=== PATIENT | female | born 1985 | race Caucasian/White ===

== ENCOUNTER 2020-03-05 09:41 | Day surgery (SDC) | payer OTHER ==
[2020-03-05 09:46] VITALS: BMI 22.4
--- NOTE | 2020-03-05 10:22 | PDOC ---
History of Present Illness - General Chief Complaint: Vaginal Bleeding Stated Complaint: SENT BY PCP (D[facility]) Time Seen by Provider: 03/05/20 10:22 Past History - Medical History Allergies/Adverse Reactions: Allergies Allergy/AdvReac Type Severity Reaction Status Date / Time No Known Allergies Allergy Verified 03/05/20 09:46 Asthma: Yes COPD: No - Reproductive History Is Patient Now?: No - Psycho-Social/Smoking History Smoking History: Never smoked - Substance Abuse Hx (Audit-C & DAST Scrn) How often the patient has a drink containing alcohol: Never Score: In Men: 4 or > Positive; In Women: 3 or > Positive: 0 Screen Result (Pos requires Nsg. Audit-10AR): Negative *Physical Exam - Vital Signs Last Vital Signs Temp Pulse Resp BP Pulse Ox 97 F L 82 18 112/66 99 03/05/20 09:43 03/05/20 09:43 03/05/20 09:43 03/05/20 09:43 03/05/20 09:43 Discharge - Follow up/Referral Referrals: ON STAFF,NOT [Primary Care Provider] - - Patient Discharge Instructions - Post Discharge Activity
[2020-03-05 11:15] LABS: BASO % 0.4 % (0-2.0); EOS % 3.6 % (0-4.5); HEMATOCRIT 31.3 % (32.4-45.2); HEMOGLOBIN 10.7 GM/dL (10.7-15.3); LYMPH % 21.7 % (8-40); MCH 31.3 pg (25.7-33.7); MCHC 34.2 g/dl (32.0-36.0); MEAN CELL VOLUME 91.6 fl (80-96); MEAN PLT VOLUME 7.4 fl (7.5-11.1); MONO % 8.1 % (3.8-10.2); NEUT % 66.2 % (42.8-82.8); PLATELET COUNT 220 K/MM3 (134-434); RBC 3.42 M/mm3 (3.60-5.2); RDW 12.6 % (11.6-15.6); WHITE BLOOD COUNT 4.2 K/mm3 (4.0-10.0)
[2020-03-05 11:21] LABS: INR 1.16 (0.83-1.09); PROTHROMBIN TIME (PATIENT) 13.7 SEC (9.7-13.0)
[2020-03-05] MEDS ORDERED: PROPOFOL 20 ML ONE ×3 (11:35→11:54)
[2020-03-05] MEDS ORDERED: MIDAZOLAM HCL 2 MG/2 ML SINGLE DOSE VIAL ONE (11:40)
[2020-03-05 11:43] LABS: ALBUMIN 3.7 g/dl (3.4-5.0); BLOOD UREA NITROGEN 8.1 mg/dL (7-18); CALCIUM 8.6 mg/dL (8.5-10.1); CREATININE 0.6 mg/dL (0.55-1.3); POTASSIUM 4.2 mmol/L (3.5-5.1); TOT PROT 6.2 g/dl (6.4-8.2)
[2020-03-05 11:49] LABS: BILIRUBIN,TOTAL 0.4 mg/dL (0.2-1)
[2020-03-05] MEDS ORDERED: ceFAZolin SODIUM 1 GM VIAL ONE (11:52)
[2020-03-05] MEDS ORDERED: ceFAZolin SODIUM 1 GM VIAL IVPB ONE (11:53)
[2020-03-05] MEDS ORDERED: KETOROLAC TROMETHAMINE 30 MG/1 ML VIAL ONE (11:57)
[2020-03-05] MEDS ORDERED: OXYTOCIN 10 UNITS/ML VIAL ONE (11:59)
[2020-03-05] MEDS ORDERED: IBUPROFEN 400 MG TABLET (FP) PO PRN (12:13)
[2020-03-05] MEDS ORDERED: ACETAMINOPHEN 325 MG TABLET (FP) PO PRN (12:13)
[2020-03-05] MEDS ORDERED: ONDANSETRON 4 MG/2 ML VIAL IVPUSH PRN (12:13)
--- NOTE | 2020-03-05 12:13 | OP ---
Operative Note - Note: Operative Date: 03/05/20 Pre-Operative Diagnosis: missed ab Operation: suction D&C Post-Operative Diagnosis: Same as Pre-op Surgeon: Charles Colon Durable Medical Equipment Technician: Agustin Nair Anesthesia: General Specimens Removed: POC Estimated Blood Loss (mls): 5 Operative Report Dictated: Yes
[2020-03-05] MEDS ORDERED: RHO(D) IMMUNE GLOBULIN 1,500 UNIT DISP.SYRIN IM ONE (12:15)
[2020-03-05] MEDS ORDERED: LACTATED RINGERS SOLUTION 1,000 ML IV SCH (12:30)
--- NOTE | 2020-03-05 12:42 | OP ---
DATE OF OPERATION: DATE OF DICTATION: 03/05/2020 PREOPERATIVE DIAGNOSIS: Missed . POSTOPERATIVE DIAGNOSIS: Missed . OPERATION: Suction, dilation and curettage. ANESTHESIA: TIVA. ANESTHESIOLOGIST: Agustin Nair, REF-DO SURGEON: Favian Colon MD PROCEDURE & FINDINGS: Under light general anesthesia patient was examined. Uterus felt to be about 10 weeks size. Part of placenta was sitting in the already dilated cervical os. Routine prep and drape was carried out. Cervix was grasped with tenaculum and traction was applied. Products of conception were removed using ring forceps. Suction curette number 10 was then used and suction curettage was performed without any problems. It alternated then with sharp curettage. Cavity felt to be completely empty. Patient was examined and uterus was well contracted and small. All instruments were withdrawn. Patient was given oxytocin intravenously and antibiotics preop. She tolerated the procedure very well. The estimated blood loss was 5 mL. Patient was awakened and transferred to the PACU stable and comfortable. FAVIAN COLON MD [id number]
[2020-03-05 13:56] VITALS: BP 103/65; PULSE 69; TEMP 98.1
--- NOTE | 2020-03-07 17:37 | PATH ---
Surgical Pathology Report Patient Name: AVERY HOLLAND [facility]. Rec. #: [id number] /Age/Gender: 1985 (Age: 34) / F Account: [id number] Location: AMBULATORY SURG Taken: 03/05/2020 Received: 03/06/2020 Reported: 03/07/2020 Physicians: Charles Colon MD Specimen(s) Received PRODUCTS OF CONCEPTION Clinical History Missed Final Diagnosis PRODUCTS OF CONCEPTION, SUCTION DILATION AND CURETTAGE: FRAGMENTS OF DECIDUA, GESTATIONAL ENDOMETRIUM, SCANT SUPERFICIAL MYOMETRIUM, AND RARE BENIGN CERVICAL SQUAMOUS EPITHELIUM. NO CHORIONIC VILLI IDENTIFIED. DEEPER LEVELS HAVE BEEN EXAMINED. Comment: Suggest clinical correlation. Electronically Signed Luci Villavicencio M.D. Gross Description Received in formalin labeled "products of conception," is a 4.0 x 3.5 x 0.2 cm aggregate of bryant-brown soft tissue fragments. No definitive villous tissue or somatic tissue is identified. The formalin is filtered and the specimen is entirely submitted in 2 cassettes. /03/06/2020 [facility]/03/06/2020
--- NOTE | 2020-03-09 21:08 | PDOC ---
Documentation entered by Milagros Olson SCRIBE, acting as scribe for Rolanda Garnett MD. Rolanda Garnett MD: This documentation has been prepared by the zacharyibe, Milagros Olson SCRIBE, under my direction and personally reviewed by me in its entirety. I confirm that the documentation accurately reflects all work, treatment, procedures, and medical decision making performed by me. Attending Attestation - Resident Resident Name: SandratevinmargaritaJarrell - ED Attending Attestation I have performed the following: I have examined & evaluated the patient, The case was reviewed & discussed with the resident, I agree w/resident's findings & plan, Exceptions are as noted - HPI HPI: 03/05/20 10:49 Patient is a 34 year old female with a significant past medical history of asthma who presents to the ED for admission for D&C. Pt was diagnosed with miscarriage last Friday, but has experienced persistent vaginal bleeding and cramping. Reports changing pad once today, denies clots. States bleeding is light. Rates cramping at 4/10 in suprapubic area. Was told to present to the ED for D&C by Dr. Colon. Denies F/C, CP, SOB, dizziness, headache, focal weakness/numbness, abd pain, LE edema. Allergies: sulfa abx - Physicial Exam PE: GENERAL: Awake, alert, and fully oriented, in no acute distress EYES: PERRLA, EOMI, sclera anicteric, conjunctiva clear ENT: Oropharynx clear without exudates. Moist mucosa NECK: Normal ROM, supple, no lymphadenopathy, JVD, or masses LUNGS: Breath sounds equal, clear to auscultation bilaterally. No wheezes, and no crackles HEART: Regular rate and rhythm, normal S1 and S2, no murmurs, rubs or gallops ABDOMEN: Soft, nontender, normoactive bowel sounds. No guarding, no rebound. No masses PELVIC: deferred as pt going up to OR for D&C with Dr. Colon EXTREMITIES: Normal range of motion, no edema. No clubbing or cyanosis. No cords, erythema, or tenderness NEUROLOGICAL: Normal speech, cranial nerves intact,equal strength and sensation b/l SKIN: Warm, Dry, normal turgor, no rashes or lesions noted. - Medical Decision Making 03/09/20 21:06 34yo F, dx 1st trimester spontaneous ab last Friday, presents to the ED for admission to OR for D&C Pt is hemodynamically stable IV placed, pre-op labs ordered Pelvic deferred as Dr. Colon at bedside to take pt to OR Per Dr. Colon, admit to [facility]. Order placed Discharge - Discharge Information Problems reviewed: Yes Clinical Impression/Diagnosis: Miscarriage Condition: Good Disposition: HOME - Follow up/Referral - Patient Discharge Instructions - Post Discharge Activity
== END 2020-03-05 16:10 | disposition home or self-care (01) ==
LOC: JER 09:41 → JASUSAT 11:14 → JASU-SURG 11:14 → J3W 13:20 → JASUSAT 16:10
PROVIDERS: ATTEND Specialist
PROC: 10D17ZZ Extraction of Products of Conception, Retained, Via Natural or Artificial Opening (ICD-10-PCS; principal; 2020-03-05 10:42)
DX: O02.1 Missed abortion (principal); Z3A.10 10 weeks gestation of pregnancy
CPT/HCPCS: 36415; 80053; 85025; 85610; 85730; 86850; 86900; 86901; 88305-TC; 94760

== ENCOUNTER 2020-09-29 08:17 | Emergency (ER) | payer OTHER ==
[2020-09-29 08:23] VITALS: BMI 22.3
[2020-09-29] MEDS ORDERED: SODIUM CHLORIDE 1,000 ML IV STA (09:03)
[2020-09-29 09:28] LABS: EPI CELLS 3 /uL (0-25.1); HYALINE CASTS 0 /uL (0-3.1); URINE APPEARANCE CLEAR; URINE BACTERIA 184 /uL (0-1359); URINE BILIRUBIN NEGATIVE (NEGATIVE); URINE COLOR YELLOW; URINE GLUCOSE (UA) NEGATIVE (NEGATIVE); URINE KETONE NEGATIVE (NEGATIVE); URINE LEUK ESTERASE NEGATIVE (NEGATIVE); URINE NITRITE NEGATIVE (NEGATIVE); URINE PROTEIN NEGATIVE (NEGATIVE); URINE RBC 7 /uL (0-23.9); URINE UROBILINOGEN 0.2 mg/dL (0.2-1.0); URINE WBC 2 /uL (0-25.8)
[2020-09-29 09:30] LABS: BASO % 0.1 % (0-2.0); EOS % 0.7 % (0-4.5); HEMATOCRIT 30.3 % (32.4-45.2); HEMOGLOBIN 10.6 GM/dL (10.7-15.3); LYMPH % 11.6 % (8-40); MCHC 35.1 g/dl (32.0-36.0); MEAN CELL VOLUME 91.1 fl (80-96); MEAN PLT VOLUME 7.3 fl (7.5-11.1); MONO % 5.1 % (3.8-10.2); NEUT % 82.5 % (42.8-82.8); PLATELET COUNT 265 K/MM3 (134-434); RBC 3.33 M/mm3 (3.60-5.2); WHITE BLOOD COUNT 6.9 K/mm3 (4.0-10.0)
[2020-09-29 09:55] LABS: POTASSIUM 3.5 mmol/L (3.5-5.1)
[2020-09-29 09:57] LABS: ALBUMIN 3.3 g/dl (3.4-5.0); BLOOD UREA NITROGEN 8.4 mg/dL (7-18); CALCIUM 8.8 mg/dL (8.5-10.1)
[2020-09-29 10:01] LABS: CREATININE 0.6 mg/dL (0.55-1.3)
[2020-09-29 10:02] LABS: TOT PROT 6.4 g/dl (6.4-8.2)
[2020-09-29 10:04] LABS: BILIRUBIN,TOTAL 0.2 mg/dL (0.2-1)
[2020-09-29 10:51] VITALS: BP 105/65; PULSE 90; TEMP 97.9
== END 2020-09-29 10:51 | disposition home or self-care (01) ==
LOC: JER 08:17
PROC: 3E0337Z Introduction of Electrolytic and Water Balance Substance into Peripheral Vein, Percutaneous Approach (ICD-10-PCS; principal; 2020-09-29)
DX: O20.0 Threatened abortion (principal)
CPT/HCPCS: 36415; 76801-TC; 80053; 81003; 84702; 85025; 87086; 99284-25

== ENCOUNTER 2021-04-06 23:00 | Inpatient (IN) | payer OTHER ==
[2021-04-07 01:05] LABS: BASO % 0.2 % (0-2.0); EOS % 0.3 % (0-4.5); HEMATOCRIT 30.1 % (32.4-45.2); HEMOGLOBIN 10.2 GM/dL (10.7-15.3); LYMPH % 7.4 % (8-40); MCH 31.4 pg (25.7-33.7); MCHC 33.8 g/dl (32.0-36.0); MEAN CELL VOLUME 92.9 fl (80-96); MEAN PLT VOLUME 8.4 fl (7.5-11.1); MONO % 4.8 % (3.8-10.2); NEUT % 87.3 % (42.8-82.8); PLATELET COUNT 213 10^3/uL (134-434); RBC 3.24 M/mm3 (3.60-5.2); RDW 13.9 % (11.6-15.6); WHITE BLOOD COUNT 11.4 K/mm3 (4.0-10.0)
[2021-04-07 01:14] LABS: INR 0.82 (0.83-1.09); PROTHROMBIN TIME (PATIENT) 10.1 SEC (9.7-13.0)
[2021-04-07 01:17] LABS: ACTIVATED PTT 25.1 SECONDS (25.2-36.5)
[2021-04-07] MEDS: ELECTROLYTE-148 SOLN 1,000 ML IV SCH ×2 (01:30→08:05)
[2021-04-07 01:35] VITALS: BMI 27.9
[2021-04-07 01:36] LABS: BLOOD UREA NITROGEN 11.6 mg/dL (7-18)
[2021-04-07 01:39] LABS: CREATININE 0.6 mg/dL (0.55-1.3)
[2021-04-07] MEDS ORDERED: AMPICILLIN SODIUM 2 GM VIAL IVPB ONE (02:30)
[2021-04-07] MEDS ORDERED: AMPICILLIN SODIUM 2 GM VIAL ONE (02:39)
[2021-04-07] MEDS ORDERED: PROMETHAZINE HCL 25 MG/1 ML VIAL IVPB ONE (03:10)
[2021-04-07] MEDS ORDERED: BUTORPHANOL TARTRATE 2 MG/ML VIAL IVPB ONE (03:10)
[2021-04-07] MEDS ORDERED: PROMETHAZINE HCL 25 MG/1 ML VIAL ONE (03:28)
[2021-04-07] MEDS ORDERED: BUTORPHANOL TARTRATE 2 MG/ML VIAL ONE (03:28)
[2021-04-07] MEDS ORDERED: AMPICILLIN SODIUM 1 GM VIAL ONE ×2 (06:43→11:10)
[2021-04-07] MEDS: AMPICILLIN SODIUM 1 GM VIAL IVPB SCH ×4 (06:45→21:26)
[2021-04-07] MEDS ORDERED: PCA PUMP NR ONE (09:06)
[2021-04-07] MEDS ORDERED: FENTANYL/BUPIVACAINE/NS/PF - PCEA - 50 ML DISP.SYRIN EP ONE (09:07)
[2021-04-07] MEDS ORDERED: OXYTOCIN 30 UNITS in 0.9% NS 30 UNIT/500 ML INFUS.BAG IVPB ONE (09:07)
[2021-04-07] MEDS ORDERED: OXYTOCIN 30 UNITS in 0.9% NS 30 UNIT/500 ML INFUS.BAG IVPB SCH (09:15)
[2021-04-07] MEDS: FENTANYL/BUPIVACAINE/NS/PF - PCEA - 50 ML DISP.SYRIN EP SCH (09:35)
[2021-04-07] MEDS ORDERED: NALOXONE HCL 0.4 MG/ML VIAL IVPUSH PRN (10:07)
[2021-04-07] MEDS ORDERED: morphine SULFATE/Preservative Free 0.5 MG/ML (1cc Syringe) ONE ×2 (11:58)
[2021-04-07] MEDS ORDERED: MORPHINE SULFATE 2 MG/ML VIAL ONE (12:01)
[2021-04-07] MEDS ORDERED: ONDANSETRON 4 MG/2 ML VIAL IVPB PRN (12:36)
[2021-04-07] MEDS ORDERED: SENNOSIDES/DOCUSATE COMBO (SENNA PLUS) TABLET (UD) PO PRN (12:36)
[2021-04-07] MEDS ORDERED: ACETAMINOPHEN 1000 MG/100 ML VIAL (NON FORMULARY) IVPB PRN (12:36)
[2021-04-07] MEDS ORDERED: IBUPROFEN 800 MG/8 ML IJ IVPB PRN (12:36)
[2021-04-07] MEDS ORDERED: oxyCODONE HCL 5 MG TABLET PO PRN (12:36)
[2021-04-07] MEDS ORDERED: OXYTOCIN 20 UNITS in 0.9% NS 20 UNIT/1,000 ML INFUS.BAG IV SCH (12:45)
[2021-04-07] MEDS ORDERED: IBUPROFEN 800 MG/8 ML IJ IVPB ONE (14:21)
[2021-04-07] MEDS: CEFAZOLIN 2 GM in DEXTROSE 5%-WATER - 50 ML IVPB SCH (17:58)
[2021-04-08] MEDS: CEFAZOLIN 2 GM in DEXTROSE 5%-WATER - 50 ML IVPB SCH (02:18)
[2021-04-08] MEDS: IBUPROFEN 600 MG TABLET (FP) PO PRN ×3 (06:47→19:18)
[2021-04-08] MEDS: SIMETHICONE 80 MG TAB.CHEW (FP) PO PRN ×3 (06:47→19:18)
[2021-04-08 07:43] LABS: BASO % 0.5 % (0-2.0); EOS % 0.5 % (0-4.5); HEMATOCRIT 30.8 % (32.4-45.2); HEMOGLOBIN 10.5 GM/dL (10.7-15.3); LYMPH % 4.7 % (8-40); MCH 31.9 pg (25.7-33.7); MCHC 33.9 g/dl (32.0-36.0); MEAN PLT VOLUME 8.4 fl (7.5-11.1); MONO % 3.5 % (3.8-10.2); NEUT % 90.8 % (42.8-82.8); PLATELET COUNT 225 10^3/uL (134-434); RBC 3.28 M/mm3 (3.60-5.2); RDW 14.3 % (11.6-15.6); WHITE BLOOD COUNT 15.4 K/mm3 (4.0-10.0)
[2021-04-08] MEDS ORDERED: BISACODYL 10 MG SUPP.RECT RC PRN (12:36)
[2021-04-09] MEDS: SIMETHICONE 80 MG TAB.CHEW (FP) PO PRN ×2 (06:16→12:19)
[2021-04-09] MEDS: IBUPROFEN 600 MG TABLET (FP) PO PRN ×2 (06:16→16:25)
[2021-04-09] MEDS: ACETAMINOPHEN 325 MG TABLET (FP) PO PRN ×2 (12:18→21:02)
[2021-04-09] MEDS: FENTANYL/BUPIVACAINE/NS/PF - PCEA - 50 ML DISP.SYRIN EP SCH (12:58)
[2021-04-09] MEDS ORDERED: oxyCODONE HCL 5 MG TABLET PO PRN (15:14)
[2021-04-10] MEDS: IBUPROFEN 600 MG TABLET (FP) PO PRN ×2 (04:11→09:53)
[2021-04-10 11:23] VITALS: BP 117/77; PULSE 80; TEMP 98.4
== END 2021-04-10 13:20 | disposition home or self-care (01) | DRG 788 ==
LOC: JDEL 23:00 → JLDR 23:40 → J3W 04-07 15:00
PROVIDERS: ADMIT Specialist; ATTEND Specialist
PROC: 10D00Z1 Extraction of Products of Conception, Low, Open Approach (ICD-10-PCS; principal; 2021-04-07)
PROC: 10907ZC Drainage of Amniotic Fluid, Therapeutic from Products of Conception, Via Natural or Artificial Opening (ICD-10-PCS; 2021-04-07)
DX: O76 Abnormality in fetal heart rate and rhythm complicating labor and delivery (principal); O62.0 Primary inadequate contractions; O69.0XX0 Labor and delivery complicated by prolapse of cord, not applicable or unspecified; Z3A.39 39 weeks gestation of pregnancy; Z37.0 Single live birth
CPT/HCPCS: 36415; 80048; 85025; 85610; 85730; 86780; 86850; 86900; 86901; 88307-TC; C9803; J0131; U0003; U0005

== ENCOUNTER 2022-11-04 07:50 | Inpatient (IN) | payer OTHER ==
[2022-11-04] MEDS ORDERED: ELECTROLYTE-148 SOLN 1,000 ML IV SCH ×2 (09:30→10:30)
[2022-11-04] MEDS ORDERED: CITRIC ACID/SODIUM CITRATE 30 ML UNIT-DOSE CUP PO ONE (09:30)
[2022-11-04] MEDS ORDERED: ELECTROLYTE-148 SOLN 500 ML IV ONE ×2 (09:30→10:28)
[2022-11-04 09:44] VITALS: BMI 28.9
[2022-11-04] MEDS ORDERED: LIGASURE IMPACT TP ONE (10:56)
[2022-11-04] MEDS ORDERED: ceFAZolin SODIUM 1 GM VIAL ONE (11:20)
[2022-11-04] MEDS ORDERED: morphine SULFATE/PF 1 MG/2 ML (2cc Syringe - QUVA) ONE (11:20)
[2022-11-04] MEDS ORDERED: ONDANSETRON 4 MG/2 ML VIAL ONE (11:20)
[2022-11-04] MEDS ORDERED: KETOROLAC TROMETHAMINE 30 MG/1 ML VIAL ONE (11:20)
[2022-11-04] MEDS ORDERED: OXYTOCIN 10 UNITS/ML VIAL ONE (11:20)
[2022-11-04] MEDS ORDERED: FENTANYL CITRATE/PF 50 MCG/ML VIAL ONE (11:21)
[2022-11-04] MEDS ORDERED: SENNOSIDES/DOCUSATE COMBO (SENNA PLUS) TABLET (UD) PO PRN (13:19)
[2022-11-04] MEDS ORDERED: ACETAMINOPHEN 1000 MG/100 ML BAG IVPB PRN (13:19)
[2022-11-04] MEDS ORDERED: ONDANSETRON 4 MG/2 ML VIAL IVPB PRN (13:19)
[2022-11-04] MEDS ORDERED: SIMETHICONE 80 MG TAB.CHEW (FP) PO PRN (13:19)
[2022-11-04] MEDS ORDERED: IBUPROFEN 600 MG TABLET (FP) PO PRN (13:19)
[2022-11-04] MEDS ORDERED: IBUPROFEN 800 MG/8 ML IJ IVPB PRN (13:19)
[2022-11-04] MEDS ORDERED: OXYTOCIN 20 UNITS in 0.9% NS 20 UNIT/1,000 ML INFUS.BAG IV SCH (13:30)
[2022-11-04] MEDS ORDERED: OXYTOCIN 20 UNITS in 0.9% NS 20 UNIT/1,000 ML INFUS.BAG IV ONE (15:10)
[2022-11-05] MEDS ORDERED: IBUPROFEN 600 MG TABLET (FP) PO PRN ×3 (04:41→19:00)
[2022-11-05 07:41] LABS: EOS % 0.8 % (0-4.5); HEMATOCRIT 25.7 % (32.4-45.2); HEMOGLOBIN 8.9 GM/dL (10.7-15.3); LYMPH % 4.3 % (8-40); MCH 31.4 pg (25.7-33.7); MCHC 34.9 g/dl (32.0-36.0); MEAN CELL VOLUME 90.2 fl (80-96); MEAN PLT VOLUME 8.7 fl (7.5-11.1); MONO % 4.9 % (3.8-10.2); PLATELET COUNT 171 10^3/uL (134-434); RBC 2.85 M/mm3 (3.60-5.2); RDW 15.9 % (11.6-15.6); WHITE BLOOD COUNT 9.7 K/mm3 (4.0-10.0)
[2022-11-05] MEDS ORDERED: FERROUS SO4 325 MG TABLET (FP) PO ONE (08:38)
[2022-11-05] MEDS ORDERED: IBUPROFEN 600 MG TABLET (FP) PO SCH (09:15)
[2022-11-05] MEDS ORDERED: ACETAMINOPHEN 325 MG TABLET (FP) PO SCH (09:15)
[2022-11-05] MEDS: PRENATAL VITAMINS W/ FOLIC ACID TABLET (FP) PO SCH (09:57)
[2022-11-05] MEDS: ACETAMINOPHEN 325 MG TABLET (FP) PO SCH ×3 (10:24→21:16)
[2022-11-05] MEDS: IBUPROFEN 600 MG TABLET (FP) PO SCH ×3 (11:55→23:22)
[2022-11-05] MEDS ORDERED: BISACODYL 10 MG SUPP.RECT RC PRN (13:19)
[2022-11-05] MEDS ORDERED: ACETAMINOPHEN 325 MG TABLET (FP) PO PRN (19:30)
[2022-11-06] MEDS: ACETAMINOPHEN 325 MG TABLET (FP) PO SCH ×3 (02:52→17:04)
[2022-11-06] MEDS: IBUPROFEN 600 MG TABLET (FP) PO SCH ×3 (06:06→18:21)
[2022-11-06] MEDS: PRENATAL VITAMINS W/ FOLIC ACID TABLET (FP) PO SCH (09:03)
[2022-11-06] MEDS ORDERED: ACETAMINOPHEN 325 MG TABLET (FP) PO ONE (22:30)
[2022-11-06] MEDS ORDERED: diphenhydrAMINE HCL 25 MG CAPSULE (FP) PO PRN (23:34)
[2022-11-07] MEDS: IBUPROFEN 600 MG TABLET (FP) PO SCH ×3 (01:38→13:10)
[2022-11-07] MEDS: ACETAMINOPHEN 325 MG TABLET (FP) PO SCH ×2 (03:06→08:20)
[2022-11-07] MEDS: oxyCODONE HCL 5 MG TABLET PO PRN ×2 (08:22→11:37)
[2022-11-07] MEDS: PRENATAL VITAMINS W/ FOLIC ACID TABLET (FP) PO SCH (10:24)
[2022-11-07 10:30] VITALS: TEMP 97.4
[2022-11-07 11:53] VITALS: BP 136/83; PULSE 88; RESP 16
== END 2022-11-07 14:34 | disposition home or self-care (01) | DRG 785 ==
LOC: JLDR 07:50 → J3W 15:15
PROVIDERS: ADMIT Specialist; ATTEND Specialist
PROC: 10D00Z1 Extraction of Products of Conception, Low, Open Approach (ICD-10-PCS; principal; 2022-11-04)
PROC: 0UT70ZZ Resection of Bilateral Fallopian Tubes, Open Approach (ICD-10-PCS; 2022-11-04)
DX: O34.211 Maternal care for low transverse scar from previous cesarean delivery (principal); Z3A.39 39 weeks gestation of pregnancy; Z37.0 Single live birth; Z30.2 Encounter for sterilization
CPT/HCPCS: 36415; 85025; 88302-TC; 88304-TC; 88307-TC